=== PATIENT | female | born 1985 | race African-American/Black ===

== ENCOUNTER 2023-02-08 17:35 | Emergency (ER) | payer MEDICAID ==
[~2023-02-08] VITALS: Ht 170.2 cm; Wt 104.0 kg
[2023-02-08 17:43] VITALS: O2SAT 100
[2023-02-08 19:36] LABS: BASOPHILS % 0.6 % (0.0-2.0); EOSINOPHILS % 2.1 % (0.0-5.0); HEMATOCRIT. 32.6 % (36.0-48.0); HEMOGLOBIN. 11.1 g/dL (12.0-16.0); LYMPHOCYTES % 29.1 % (20.0-50.0); MEAN CORPUSCULAR HEMOGLOBIN 29.2 pg (28.0-32.0); MEAN CORPUSCULAR HGB CONC 34.1 g/dL (31.0-37.0); MEAN CORPUSCULAR VOLUME 85.8 fL (81.0-99.0); MEAN PLATELET VOLUME 7.8 fl (7.4-10.4); MONOCYTES % 9.4 % (2.0-8.0); NEUTROPHILS % 58.8 % (40.0-76.0); PLATELET 307 x1000/uL (130-400); RED BLOOD CELL COUNT 3.79 mill/uL (4.2-5.4); RED CELL DISTRIBUTION WIDTH 13.7 % (11.6-14.6); WHITE BLOOD COUNT 9.8 x1000/uL (4.5-11.0)
[2023-02-08 19:46] LABS: PROTHROMBIN TIME 10.8 sec (9.6-11.0)
[2023-02-08 19:51] LABS: CHLORIDE 110 mEq/L (98-107); INDEX HEMOLYSI 3 (1-3); INDEX ICTERIC 1 (1-4); INDEX LIPEMIC 1 (1-3); SODIUM 139 mEq/L (136-145)
[2023-02-08 20:01] LABS: ALANINE AMINOTRANSFERASE 28 IU/L (13-61); ALBUMIN 3.2 g/dL (3.4-5.0); ASPARTATE AMINOTRANSFERASE 26 IU/L (15-37); B-HCG QUANTITATIVE 226 mIU/mL (<3); BILIRUBIN TOTAL 0.1 mg/dL (0.1-1.0); CARBON DIOXIDE 25 mEq/L (21-32); CREATININE 0.6 mg/dL (0.6-1.3); GLUCOSE 86 mg/dL (70-105); UREA NITROGEN BLOOD 6 mg/dL (7-21)
[2023-02-08] MEDS ORDERED: ACETAMINOPHEN 325MG TABLET PO ONE (20:15)
[2023-02-08] MEDS ORDERED: ONDANSETRON 4MG ODT PO ONE (20:15)
[2023-02-08 20:35] VITALS: BP 112/61; PULSE 66; RESP 16; TEMP 98.6
== END 2023-02-08 20:41 | disposition home or self-care (01) ==
LOC: ER 17:35
DX: O03.4 Incomplete spontaneous abortion without complication (principal); D25.9 Leiomyoma of uterus, unspecified; Z3A.01 Less than 8 weeks gestation of pregnancy
CPT/HCPCS: 80053; 84702; 85025; 85610; 86850; 86900; 86901; 36415; 76801; 76817; 99284; Q0162; Z7610 ×2

== ENCOUNTER 2024-02-14 14:05 | Emergency (ER) | payer MEDICAID, OTHER ==
[~2024-02-14] VITALS: Ht 172.7 cm; Wt 100.0 kg
[2024-02-14 14:12] VITALS: O2SAT 99
[2024-02-14 14:39] LABS: BASOPHILS % 0.7 % (0.0-2.0); EOSINOPHILS % 1.9 % (0.0-5.0); HEMATOCRIT. 35.9 % (36.0-48.0); LYMPHOCYTES % 24.2 % (20.0-50.0); MEAN CORPUSCULAR HEMOGLOBIN 28.5 pg (28.0-32.0); MEAN CORPUSCULAR HGB CONC 33.5 g/dL (31.0-37.0); MEAN CORPUSCULAR VOLUME 85.1 fL (81.0-99.0); MONOCYTES % 9.2 % (2.0-8.0); PLATELET 266 x1000/uL (130-400); RED BLOOD CELL COUNT 4.21 mill/uL (4.2-5.4); WHITE BLOOD COUNT 9.5 x1000/uL (4.5-11.0)
[2024-02-14 15:02] LABS: CLARITY URINE CLEAR (CLEAR); COLOR URINE YELLOW (YELLOW); GLUCOSE URINE NEGATIVE (NEGATIVE); KETONES URINE NEGATIVE (NEGATIVE); LEUKOCYTE ESTERASE URINE NEGATIVE (NEGATIVE); NITRITE URINE NEGATIVE (NEGATIVE); OCCULT BLOOD URINE NEGATIVE (NEGATIVE); PROTEIN URINE NEGATIVE (NEGATIVE); SPECIFIC GRAVITY URINE 1.015 (1.005-1.030); UROBILINOGEN URINE 0.2 E.U./dL (0.2-1.0)
[2024-02-14 17:36] LABS: CHLORIDE 106 mEq/L (98-107); SODIUM 137 mEq/L (136-145)
[2024-02-14 17:37] LABS: CALCIUM 9.4 mg/dL (8.7-10.4); CARBON DIOXIDE 24 mEq/L (21-32)
[2024-02-14 17:42] LABS: CREATININE 0.6 mg/dL (0.6-1.0); GLUCOSE 89 mg/dL (70-105); UREA NITROGEN BLOOD 9 mg/dL (9-23)
[2024-02-14 17:44] LABS: ALANINE AMINOTRANSFERASE 13 IU/L (10-49); ALBUMIN 4.2 g/dL (3.2-4.8); ASPARTATE AMINOTRANSFERASE 17 IU/L (<34); BILIRUBIN TOTAL 0.2 mg/dL (0.1-1.0)
[2024-02-14 17:45] LABS: PROTEIN TOTAL 6.7 g/dL (6.0-8.3)
[2024-02-14 18:28] VITALS: BP 141/87; PULSE 87; RESP 16
== END 2024-02-14 18:31 | disposition home or self-care (01) ==
LOC: ER 14:05
DX: O26.891 Other specified pregnancy related conditions, first trimester (principal); D25.9 Leiomyoma of uterus, unspecified; N83.202 Unspecified ovarian cyst, left side; Z3A.01 Less than 8 weeks gestation of pregnancy
CPT/HCPCS: 36415; 76801; 80053; 81003; 81025; 84702; 85025; 99284